=== PATIENT | female | born 1950 | race Caucasian/White ===

== ENCOUNTER 2022-11-24 10:32 | Outpatient (CLI) | payer MEDICARE ==
[~2022-11-24 10:32] MED LIST: Iopamidol 300 61% 100 ML VIAL FS ONE
== END 2022-11-24 10:33 | disposition home or self-care (01) ==
LOC: CSHCT 10:32
PROVIDERS: ATTEND Internal Medicine Gastroenterology
DX: R19.4 Change in bowel habit (principal); E73.9 Lactose intolerance, unspecified; K86.2 Cyst of pancreas; K90.0 Celiac disease; K86.81 Exocrine pancreatic insufficiency
CPT/HCPCS: 74177; 82565; Q9967